=== PATIENT | female | born 2000 | race Two or more races ===

== ENCOUNTER 2021-06-21 22:28 | Inpatient (IN) | payer SELFPAY ==
[~2021-06-21] VITALS: Ht 157.5 cm; Wt 68.9 kg
[2021-06-21] MEDS ORDERED: PNV1TABL61 MT (23:12)
[2021-06-21] MEDS ORDERED: FERR-71 PO (23:12)
[2021-06-21] MEDS ORDERED: LACTATED RINGERS 1,000 ML IV SCH (23:45)
[2021-06-22 00:01] LABS: CLARITY URINE CLEAR (CLEAR); COLOR URINE DARK YELLOW (YELLOW); KETONES URINE 3+ (NEGATIVE); LEUKOCYTE ESTERASE URINE TRACE (NEGATIVE); NITRITE URINE NEGATIVE (NEGATIVE); OCCULT BLOOD URINE NEGATIVE (NEGATIVE); PROTEIN URINE TRACE (NEGATIVE); SPECIFIC GRAVITY URINE 1.022 (1.005-1.030)
[2021-06-22] MEDS ORDERED: BUTORPHANOL TARTRATE 2 MG/ML VIAL IV PRN (02:00)
[2021-06-22] MEDS ORDERED: LIDOCAINE HCL 1% 20ML VIAL (Pyxis) INJ INFIL SCH (02:00)
[2021-06-22] MEDS ORDERED: CARBOPROST TROMETHAMINE 250 MCG/ML AMPUL IM PRN (02:00)
[2021-06-22] MEDS ORDERED: METHYLERGONOVINE MALEATE 0.2 MG/ML IM PRN (02:00)
[2021-06-22] MEDS ORDERED: NALOXONE HCL 0.4 MG/ML 1ML VIAL IM PRN (02:00)
[2021-06-22 03:06] LABS: BASOPHILS % 0.2 % (0.0-2.0); EOSINOPHILS % 1.3 % (0.0-5.0); HEMATOCRIT. 28.4 % (36.0-48.0); HEMOGLOBIN. 9.2 g/dL (12.0-16.0); LYMPHOCYTES % 22.6 % (20.0-50.0); MEAN CORPUSCULAR HEMOGLOBIN 23.8 pg (28.0-32.0); MEAN CORPUSCULAR VOLUME 73.3 fL (81.0-99.0); MEAN PLATELET VOLUME 8.1 fl (7.4-10.4); MONOCYTES % 8.6 % (2.0-8.0); NEUTROPHILS % 67.3 % (40.0-76.0); PLATELET 256 x1000/uL (130-400); RED BLOOD CELL COUNT 3.88 mill/uL (4.2-5.4); RED CELL DISTRIBUTION WIDTH 16.7 % (11.6-14.6)
[2021-06-22 03:34] LABS: PARTIAL THROMBOPLASTIN TIME 28.5 sec (23.4-31.0); PROTHROMBIN TIME 10.4 sec (9.6-11.0)
[2021-06-22 04:25] LABS: HEPATITIS B SURFACE ANTIGEN NEGATIVE
[2021-06-22] MEDS: DEXT 5%/LR + PITOCIN 20UNITS/L 1,000 ML IV SCH (05:40)
[2021-06-22] MEDS: LACTATED RINGERS 1,000 ML IV SCH ×3 (05:41→17:24)
[2021-06-22 15:13] LABS: *BARBITURATES SCREEN URINE NEGATIVE (NEGATIVE)
[2021-06-22 15:15] LABS: *AMPHETAMINES SCREEN URINE NEGATIVE (NEGATIVE); *BENZODIAZEPINES SCREEN URINE NEGATIVE (NEGATIVE); *COCAINE SCREEN URINE NEGATIVE (NEGATIVE); CANNABINOID URINE SCREEN NEGATIVE (NEGATIVE); METHADONE URINE SCREEN NEGATIVE (NEGATIVE); OPIATES URINE SCREEN NEGATIVE (NEGATIVE); PHENCYCLIDINE URINE SCREEN NEGATIVE (NEGATIVE)
[2021-06-22] MEDS ORDERED: ROPIVACAINE HCL 10MG/ML 20 ML VIAL EPI ONE (16:30)
[2021-06-22] MEDS ORDERED: ROPIVACAINE HCL/PF EPIDURAL 200 ML EPI NR (16:45)
[2021-06-23] MEDS: DEXT 5%/LR + PITOCIN 20UNITS/L 1,000 ML IV SCH (01:12)
[2021-06-23] MEDS ORDERED: ACETAMINOPHEN WITH CODEINE 300/30MG TABLET PO PRN ×2 (02:15)
[2021-06-23] MEDS ORDERED: DEXT 5%/LR + PITOCIN 20UNITS/L 1,000 ML IV SCH ×2 (02:15→02:30)
[2021-06-23] MEDS ORDERED: BISACODYL 10MG SUPP PR PRN (02:15)
[2021-06-23] MEDS ORDERED: LANOLIN OINT 7GM TUBE TOP PRN (02:15)
[2021-06-23] MEDS ORDERED: GLYCERIN/WITCH HAZEL LEAF MEDICATED PAD TOP PRN (02:15)
[2021-06-23 02:40] VITALS: BP 130/75
[2021-06-23 02:45] VITALS: BP 121/71
[2021-06-23 03:15] VITALS: BP 125/75
[2021-06-23] MEDS ORDERED: PHYTONADIONE 1MG/0.5ML AMP IM SCH (05:45)
[2021-06-23] MEDS ORDERED: HEPATITIS B VIRUS VACCINE-PF 10 MCG/0.5 VIAL IM SCH (05:45)
[2021-06-23] MEDS ORDERED: ERYTHROMYCIN BASE 0.5% OPHTH OINT UD BOTHEYE SCH (05:45)
[2021-06-23 08:10] VITALS: BP 115/64
[2021-06-23] MEDS: PRENATAL VIT/FE FUMARATE/FA TABLET PO SCH (09:30)
[2021-06-23] MEDS: IBUPROFEN 400MG TABLET PO PRN (09:30)
[2021-06-23 09:57] LABS: BASOPHILS % 0.1 % (0.0-2.0); EOSINOPHILS % 0.4 % (0.0-5.0); HEMATOCRIT. 30.6 % (36.0-48.0); HEMOGLOBIN. 9.8 g/dL (12.0-16.0); MEAN CORPUSCULAR HEMOGLOBIN 23.6 pg (28.0-32.0); MEAN PLATELET VOLUME 8.2 fl (7.4-10.4); MONOCYTES % 7.2 % (2.0-8.0); NEUTROPHILS % 79.3 % (40.0-76.0); PLATELET 241 x1000/uL (130-400); RED BLOOD CELL COUNT 4.14 mill/uL (4.2-5.4); RED CELL DISTRIBUTION WIDTH 16.6 % (11.6-14.6)
[2021-06-23 14:47] VITALS: BP 106/68
[2021-06-23 20:00] VITALS: BP 121/77
[2021-06-24 04:00] VITALS: BP 111/71
[2021-06-24 06:07] LABS: BASOPHILS % 0.1 % (0.0-2.0); EOSINOPHILS % 2.2 % (0.0-5.0); HEMATOCRIT. 30.9 % (36.0-48.0); LYMPHOCYTES % 30.5 % (20.0-50.0); MEAN CORPUSCULAR HEMOGLOBIN 24.2 pg (28.0-32.0); MEAN CORPUSCULAR VOLUME 74.5 fL (81.0-99.0); MEAN PLATELET VOLUME 8.2 fl (7.4-10.4); NEUTROPHILS % 61.2 % (40.0-76.0); PLATELET 236 x1000/uL (130-400); RED BLOOD CELL COUNT 4.15 mill/uL (4.2-5.4); RED CELL DISTRIBUTION WIDTH 16.9 % (11.6-14.6)
[2021-06-24 07:46] VITALS: BP 118/69
[2021-06-24 07:57] VITALS: BP 118/69
[2021-06-24] MEDS: PRENATAL VIT/FE FUMARATE/FA TABLET PO SCH (08:33)
[2021-06-24] MEDS: IBUPROFEN 400MG TABLET PO PRN (08:36)
== END 2021-06-24 12:40 | disposition home or self-care (01) | DRG 560 ==
LOC: OBSVTOIN 22:28 → 8 EST LDRP 22:28 → 8EST 06-23 02:26
PROVIDERS: ADMIT Obstetrics & Gynecology; ATTEND Obstetrics & Gynecology
PROC: 10E0XZZ Delivery of Products of Conception, External Approach (ICD-10-PCS; principal; 2021-06-23)
PROC: 3E0R3BZ Introduction of Anesthetic Agent into Spinal Canal, Percutaneous Approach (ICD-10-PCS; 2021-06-23)
PROC: 00HU33Z Insertion of Infusion Device into Spinal Canal, Percutaneous Approach (ICD-10-PCS; 2021-06-23)
DX: O42.913 Preterm premature rupture of membranes, unspecified as to length of time between rupture and onset of labor, third trimester (principal); Z37.0 Single live birth; O41.03X0 Oligohydramnios, third trimester, not applicable or unspecified; O69.81X0 Labor and delivery complicated by cord around neck, without compression, not applicable or unspecified; Z20.822 Contact with and (suspected) exposure to COVID-19; Z3A.37 37 weeks gestation of pregnancy
CPT/HCPCS: 36415; 76805; 76818; 80305; 81003; 85025; 86592; 86703; 86762; 86850; 86900; 87340; 87426; 99281; J0595; J2590; J2795; J7120

== ENCOUNTER 2024-01-16 19:47 | Emergency (ER) | payer SELFPAY ==
[~2024-01-16] VITALS: Ht 157.5 cm; Wt 59.0 kg
[~2024-01-16 19:47] MED LIST: FERR-71 PO; PNV1TABL61 MT
[2024-01-16 19:59] VITALS: O2SAT 98
[2024-01-16] MEDS: ACETAMINOPHEN 325MG TABLET PO ONE (22:39)
[2024-01-17 00:01] VITALS: BP 126/84; PULSE 91; RESP 16; TEMP 98.3
== END 2024-01-17 00:38 | disposition home or self-care (01) ==
LOC: ER 19:47
DX: S09.90XA Unspecified injury of head, initial encounter (principal); Y08.89XA Assault by other specified means, initial encounter; Y93.89 Activity, other specified; Y92.89 Other specified places as the place of occurrence of the external cause; Y99.8 Other external cause status
CPT/HCPCS: 71045; 81025; 99284